=== PATIENT | male | born 1990 | race Caucasian/White ===

== ENCOUNTER 2021-12-28 15:16 | Outpatient (REF) | payer SELFPAY ==
[2021-12-31 14:46] LABS: Helicobacter pylori Ag, Feces Negative (Negative)
== END 2021-12-28 15:17 | disposition home or self-care (01) ==
LOC: NCHCN 15:16
PROVIDERS: Visit Provider Family Medicine
DX: K21.9 Gastro-esophageal reflux disease without esophagitis (principal)
CPT/HCPCS: 87338